=== PATIENT | female | born 1990 | race Caucasian/White ===

== ENCOUNTER 2018-03-25 17:34 | Emergency (ER) | payer BC ==
[~2018-03-25] VITALS: Ht 167.6 cm; Wt 62.1 kg
[2018-03-25 17:35] VITALS: Ht 167.6 cm; Wt 62.1 kg
[2018-03-25 19:24] VITALS: BP 119/66
== END 2018-03-25 19:24 | disposition home or self-care (01) ==
LOC: ED 17:34
DX: S01.511A Laceration without foreign body of lip, initial encounter (principal); S09.8XXA Other specified injuries of head, initial encounter; F32.9 Major depressive disorder, single episode, unspecified; W18.39XA Other fall on same level, initial encounter; Y93.89 Activity, other specified; Y92.89 Other specified places as the place of occurrence of the external cause; Y99.8 Other external cause status
CPT/HCPCS: 90715; J1885; J2001